=== PATIENT | male | born 1960 | race Caucasian/White ===

== ENCOUNTER 2022-03-05 04:13 | Inpatient (IN) ==
[2022-03-05 04:55] LABS: Basophils % 0.2 % (0.0-0.8); Eosinophils % 0.8 % (0.00-10.9); Hematocrit 48.3 VOL% (42.0-52.0); Immature Granulocytes % 0.4 %; Immature Granulocytes Absolute 0.02 #; Lymphocytes # 0.2 10*3/uL (1.4-4.0); Lymphocytes % 3.7 % (21.2-54.2); Mean Corpuscular HGB Conc 35.2 GM/DL (32-36); Mean Corpuscular Volume 92.5 FL (87-102); Monocytes % 0.4 % (1.7-12.7); Neutrophils % 94.5 % (38.7-73.9); Platelet Count 127 T/CUMM (130-400); Red Blood Count 5.22 MC/CUMM (3.8-5.5); Red Cell Distribution Width 13.2 % (9.3-17.3); White Blood Count 5.2 T/CUMM (4-12)
[2022-03-05 05:13] LABS: Bilirubin,Total 1.8 MG/DL (0.20-1.00); Calcium 8.8 MG/DL (8.5-10.1); Osmolality,Calculated 290.4 MOS/KG (273-304); Potassium 3.3 MMOL/L (3.5-5.1); Total Protein 7.3 G/DL (6.4-8.2)
[2022-03-05 05:26] LABS: Band Neutrophils 4 % (0-10); Lymphocytes 3 % (20-55); Platelet Estimate Adequate; Segmented Neutrophils 90 % (50-85); Stomatocytes Few; Total Cells Counted 100
[2022-03-05] MEDS ORDERED: VANCOMYCIN INJ 1,000 MG in SODIUM CHLORIDE 0.9% 250 ML IV STA (05:41)
[2022-03-05] MEDS ORDERED: PIPERACILLIN/TAZOBACTAM 3,375 MG in SODIUM CHLORIDE 0.9% 100 ML IV STA (05:44)
[2022-03-05 05:58] LABS: Mucus,Urine Occasional /LPF (Occasional); RBC,Urine 3 /HPF (0-4)
[2022-03-05 05:59] LABS: Bilirubin,Urine Negative (Negative); Blood, Urine Small mg/dL (Negative); Glucose,Urine (UA) >1000 mg/dL (Negative); Ketones,Urine Negative (Negative); Nitrite,Urine Negative (Negative); Protein,Urine 100 mg/dL (Negative); Urine Appearance Clear (Clear); Urine Color Yellow (Yellow); Urine Specific Gravity 1.015 (1.001-1.035); Urine Urobilinogen 0.2 eU/dL (<2.0); Urine pH 5.5 (4.5-8.0)
[2022-03-05] MEDS ORDERED: LACTATED RINGERS 1,000 ML IV SCH (06:00)
[2022-03-05] MEDS ORDERED: FUROSEMIDE 40 MG/4 ML VIAL IV STA (06:14)
[2022-03-05] MEDS ORDERED: guaiFENesin/DM ER 600-30 MG TABLET PO PRN (06:17)
[2022-03-05] MEDS ORDERED: DEXTROSE 10% 25 GM/250 ML BAG IV PRN (06:17)
[2022-03-05] MEDS ORDERED: ACETAMINOPHEN 325 MG TABLET PO PRN (06:17)
[2022-03-05] MEDS ORDERED: GLUCAGON 1 MG VIAL IM PRN (06:17)
[2022-03-05] MEDS ORDERED: ONDANSETRON 4 MG/2 ML VIAL IV PRN (06:17)
[2022-03-05] MEDS ORDERED: hydrALAZINE 20 MG/1 ML VIAL IV PRN (06:17)
[2022-03-05] MEDS ORDERED: methylPREDNISolone SOD SUC 125 MG/2 ML VIAL IV STA (06:35)
[2022-03-05 06:47] LABS: Arterial Base Excess iSTAT 0 MMOL/L (-2.5-2.5); Arterial Bicarbonate iSTAT 23.5 MMOL/L (20-26); Arterial O2 Saturation iSTAT 91 % (95-100); Arterial PCO2 iSTAT 35 MM HG (35-48); Arterial PO2 iSTAT 59 MM HG (80-95); Arterial Total CO2 iSTAT 25 MMO/L (23-27); Arterial pH iSTAT 7.432 (7.35-7.45)
[2022-03-05] MEDS ORDERED: POTASSIUM CHLORIDE RIDER 10 MEQ/100 ML PREMIX IV PRN (06:49)
[2022-03-05] MEDS ORDERED: MAGNESIUM SULF RIDER 2 GM/50 ML PREMIX IV PRN (06:49)
[2022-03-05] MEDS ORDERED: MAGNESIUM SULF RIDER 4 GM/100 ML PREMIX IV PRN (06:49)
[2022-03-05] MEDS ORDERED: POTASSIUM CHLORIDE 20 MEQ TABLET PO PRN (06:49)
[2022-03-05] MEDS: ALBUTEROL/IPRATROPIUM 3 ML NEB RESP TX SCH ×3 (06:58→19:17)
[2022-03-05] MEDS ORDERED: ENOXAPARIN 40 MG/0.4 ML SYRINGE SUBCUT SCH (07:00)
[2022-03-05] MEDS ORDERED: VANCOMYCIN INJ 1,500 MG in SODIUM CHLORIDE 0.9% 250 ML IV SCH (07:00)
[2022-03-05] MEDS ORDERED: SODIUM CHLORIDE 0.9% 1,000 ML IV SCH (07:30)
[2022-03-05] MEDS: INSULIN REGULAR 100 UNIT/ML SUBCUT SCH ×4 (08:14→22:06)
[2022-03-05] MEDS: CEFEPIME 1,000 MG in SODIUM CHLORIDE 0.9% 100 ML IV SCH ×3 (09:03→22:03)
[2022-03-05] MEDS: DOCUSATE SODIUM 100 MG CAPSULE PO SCH ×2 (09:03→22:40)
[2022-03-05] MEDS: PANTOPRAZOLE 40 MG TABLET PO SCH (09:04)
[2022-03-05] MEDS ORDERED: ENOXAPARIN 60 MG/0.6 ML SYRINGE SUBCUT ONE (10:01)
[2022-03-05] MEDS ORDERED: ASPIRIN EC 325 MG TABLET PO ONE (10:02)
[2022-03-05] MEDS ORDERED: DEXTROSE 10% 250 ML BAG IV PRN (10:48)
[2022-03-05] MEDS: TICAGRELOR 90 MG TABLET PO SCH ×2 (12:21→22:07)
[2022-03-05] MEDS: METOPROLOL TARTRATE 25 MG TABLET PO SCH ×2 (12:21→22:07)
[2022-03-05] MEDS: methylPREDNISolone SOD SUC 125 MG/2 ML VIAL IV SCH (17:10)
[2022-03-05] MEDS: ENOXAPARIN 100 MG/ML SYRINGE SUBCUT SCH (22:03)
[2022-03-05] MEDS: guaiFENesin/DM ER 600-30 MG TABLET PO SCH ×2 (22:03→22:08)
[2022-03-05] MEDS ORDERED: POTASSIUM CHLORIDE 20 MEQ TABLET PO ONE (22:04)
[2022-03-05] MEDS: INSULIN GLARGINE 100 UNIT/ML SUBCUT SCH (22:06)
[2022-03-05] MEDS: ROSUVASTATIN 20 MG TABLET PO SCH (22:22)
[2022-03-06] MEDS: ALBUTEROL/IPRATROPIUM 3 ML NEB RESP TX SCH ×4 (00:11→19:45)
[2022-03-06] MEDS: methylPREDNISolone SOD SUC 125 MG/2 ML VIAL IV SCH ×2 (00:33→09:36)
[2022-03-06] MEDS: VANCOMYCIN INJ 1,500 MG in SODIUM CHLORIDE 0.9% 500 ML IV SCH ×2 (00:34→17:26)
[2022-03-06] MEDS: CEFEPIME 1,000 MG in SODIUM CHLORIDE 0.9% 100 ML IV SCH ×4 (03:39→22:03)
[2022-03-06 07:11] LABS: Basophils % 0.2 % (0.0-0.8); Hematocrit 44.3 VOL% (42.0-52.0); Immature Granulocytes % 0.6 %; Immature Granulocytes Absolute 0.06 #; Lymphocytes # 0.5 10*3/uL (1.4-4.0); Lymphocytes % 4.9 % (21.2-54.2); Mean Corpuscular HGB Conc 33.4 GM/DL (32-36); Mean Corpuscular Volume 96.3 FL (87-102); Mean Platelet Volume 11.7 FL (9.6-12.0); Neutrophils % 92.3 % (38.7-73.9); Platelet Count 122 T/CUMM (130-400); Red Cell Distribution Width 13.2 % (9.3-17.3)
[2022-03-06 07:12] LABS: Hemoglobin 14.8 GM/DL (14.0-18.0); White Blood Count 10.4 T/CUMM (4-12)
[2022-03-06 07:20] LABS: Albumin 3.1 G/DL (3.4-5.0); Bilirubin,Total 1.2 MG/DL (0.20-1.00); Calcium 8.9 MG/DL (8.5-10.1); Osmolality,Calculated 296.1 MOS/KG (273-304); Thyroid Stimulating Hormone 0.274 uIU/ml (0.358-3.74); Total Protein 6.6 G/DL (6.4-8.2)
[2022-03-06 07:23] LABS: Band Neutrophils 2 % (0-10); Lymphocytes 3 % (20-55); Segmented Neutrophils 94 % (50-85); Total Cells Counted 100
[2022-03-06] MEDS: guaiFENesin/DM ER 600-30 MG TABLET PO SCH ×2 (09:34→21:53)
[2022-03-06] MEDS: DOCUSATE SODIUM 100 MG CAPSULE PO SCH ×2 (09:34→22:12)
[2022-03-06] MEDS: PANTOPRAZOLE 40 MG TABLET PO SCH (09:34)
[2022-03-06] MEDS: METOPROLOL TARTRATE 25 MG TABLET PO SCH ×2 (09:34→21:57)
[2022-03-06] MEDS: FOLIC ACID 1 MG TABLET PO SCH (09:34)
[2022-03-06] MEDS: TICAGRELOR 90 MG TABLET PO SCH ×2 (09:34→21:58)
[2022-03-06] MEDS: ASPIRIN EC 81 MG TABLET PO SCH (09:34)
[2022-03-06] MEDS: INSULIN REGULAR 100 UNIT/ML SUBCUT SCH ×4 (09:37→21:53)
[2022-03-06] MEDS: ENOXAPARIN 100 MG/ML SYRINGE SUBCUT SCH ×2 (09:37→21:59)
[2022-03-06] MEDS: predniSONE 10 MG TABLET PO SCH (12:28)
[2022-03-06] MEDS ORDERED: guaiFENesin/CODEINE 5 ML LIQUID PO PRN (15:10)
[2022-03-06] MEDS: EMPAGLIFLOZIN 25 MG PO SCH (15:26)
[2022-03-06] MEDS: INSULIN GLARGINE 100 UNIT/ML SUBCUT SCH (21:52)
[2022-03-06] MEDS: ROSUVASTATIN 20 MG TABLET PO SCH (21:54)
[2022-03-07] MEDS: ALBUTEROL/IPRATROPIUM 3 ML NEB RESP TX SCH ×4 (00:05→19:30)
[2022-03-07] MEDS: CEFEPIME 1,000 MG in SODIUM CHLORIDE 0.9% 100 ML IV SCH ×2 (02:36→08:15)
[2022-03-07 05:05] LABS: Basophils % 0.2 % (0.0-0.8); Eosinophils % 0.3 % (0.00-10.9); Hematocrit 42.2 VOL% (42.0-52.0); Hemoglobin 14.3 GM/DL (14.0-18.0); Immature Granulocytes % 0.5 %; Immature Granulocytes Absolute 0.05 #; Lymphocytes # 1.1 10*3/uL (1.4-4.0); Lymphocytes % 10.3 % (21.2-54.2); Mean Corpuscular HGB Conc 33.9 GM/DL (32-36); Mean Corpuscular Volume 97.7 FL (87-102); Mean Platelet Volume 11.3 FL (9.6-12.0); Monocytes % 8.1 % (1.7-12.7); Neutrophils % 80.6 % (38.7-73.9); Platelet Count 120 T/CUMM (130-400); Red Blood Count 4.32 MC/CUMM (3.8-5.5); Red Cell Distribution Width 13.2 % (9.3-17.3); White Blood Count 10.4 T/CUMM (4-12)
[2022-03-07 05:36] LABS: Calcium 8.7 MG/DL (8.5-10.1); Potassium 4.1 MMOL/L (3.5-5.1)
[2022-03-07] MEDS ORDERED: SODIUM CHLORIDE 0.9% 1,000 ML IV SCH (07:00)
[2022-03-07] MEDS: INSULIN REGULAR 100 UNIT/ML SUBCUT SCH ×4 (07:52→22:38)
[2022-03-07] MEDS ORDERED: DIAZEPAM 5 MG TABLET PO ONE (08:00)
[2022-03-07] MEDS ORDERED: diphenhydrAMINE CAP 50 MG CAPSULE PO ONE (08:00)
[2022-03-07] MEDS: FOLIC ACID 1 MG TABLET PO SCH (08:17)
[2022-03-07] MEDS: guaiFENesin/DM ER 600-30 MG TABLET PO SCH ×2 (08:17→22:39)
[2022-03-07] MEDS: predniSONE 10 MG TABLET PO SCH (08:17)
[2022-03-07] MEDS: METOPROLOL TARTRATE 25 MG TABLET PO SCH ×2 (08:17→22:42)
[2022-03-07] MEDS: ASPIRIN EC 81 MG TABLET PO SCH (08:17)
[2022-03-07] MEDS: DOCUSATE SODIUM 100 MG CAPSULE PO SCH ×2 (08:18→22:42)
[2022-03-07] MEDS: EMPAGLIFLOZIN 25 MG PO SCH (08:18)
[2022-03-07] MEDS: PANTOPRAZOLE 40 MG TABLET PO SCH (08:18)
[2022-03-07] MEDS: TICAGRELOR 90 MG TABLET PO SCH ×2 (08:18→22:39)
[2022-03-07] MEDS: ENOXAPARIN 100 MG/ML SYRINGE SUBCUT SCH ×2 (08:25→22:40)
[2022-03-07] MEDS ORDERED: LIDOCAINE 1%/EPI INJ 20 ML VIAL ONE (09:08)
[2022-03-07] MEDS ORDERED: HEPARIN/NACL 0.9% 2 UNITS/ML 2,000 UNIT/1,000 ML BAG IV ONE (09:08)
[2022-03-07] MEDS ORDERED: MIDAZOLAM 2 MG/2 ML VIAL ONE (09:40)
[2022-03-07] MEDS ORDERED: fentaNYL 100 MCG/2 ML VIAL ONE (09:40)
[2022-03-07] MEDS: AMOXICILLIN/CLAV 875 MG TABLET PO SCH ×2 (11:44→22:39)
[2022-03-07] MEDS: INSULIN GLARGINE 100 UNIT/ML SUBCUT SCH (22:38)
[2022-03-07] MEDS: ROSUVASTATIN 20 MG TABLET PO SCH (22:42)
[2022-03-08] MEDS: ALBUTEROL/IPRATROPIUM 3 ML NEB RESP TX SCH ×2 (00:20→07:12)
[2022-03-08 07:47] VITALS: BP 146/57
[2022-03-08] MEDS ORDERED: METHOTREXATE 2.5 MG TABLET PO SCH (09:00)
[2022-03-08] MEDS ORDERED: RIVAROXABAN 2.5 MG TABLET PO SCH (10:00)
[2022-03-08] MEDS: INSULIN REGULAR 100 UNIT/ML SUBCUT SCH (10:09)
[2022-03-08] MEDS: guaiFENesin/DM ER 600-30 MG TABLET PO SCH (10:09)
[2022-03-08] MEDS: ASPIRIN EC 81 MG TABLET PO SCH (10:10)
[2022-03-08] MEDS: AMOXICILLIN/CLAV 875 MG TABLET PO SCH (10:10)
[2022-03-08] MEDS: TICAGRELOR 90 MG TABLET PO SCH (10:10)
[2022-03-08] MEDS: DOCUSATE SODIUM 100 MG CAPSULE PO SCH (10:11)
[2022-03-08] MEDS: METOPROLOL TARTRATE 25 MG TABLET PO SCH (10:11)
[2022-03-08] MEDS: predniSONE 10 MG TABLET PO SCH (10:12)
[2022-03-08] MEDS: PANTOPRAZOLE 40 MG TABLET PO SCH (10:12)
[2022-03-08] MEDS: FOLIC ACID 1 MG TABLET PO SCH (10:18)
[2022-03-08] MEDS: EMPAGLIFLOZIN 25 MG PO SCH (10:19)
[2022-03-08] MEDS ORDERED: SIMVASTATIN 20 MG TABLET PO SCH (21:00)
[2022-03-09] MEDS ORDERED: FUROSEMIDE 40 MG TABLET PO SCH (09:00)
[2022-03-09] MEDS ORDERED: EZETIMIBE 10 MG TABLET PO SCH (09:00)
== END 2022-03-08 13:41 | disposition home or self-care (01) | DRG 193 ==
LOC: SUATTDRO → N.ED 04:13 → SUATTDRO 06:17 → N.EDINP 06:17 → N.5E 08:21
PROVIDERS: ADMIT Emergency Medicine; ATTEND Internal Medicine

== ENCOUNTER 2022-03-09 15:11 | Observation (INO) ==
[2022-03-09] MEDS ORDERED: ONDANSETRON 4 MG/2 ML VIAL IV STA (19:07)
[2022-03-09] MEDS ORDERED: ALBUTEROL/IPRATROPIUM 3 ML NEB RESP TX STA (19:07)
[2022-03-09] MEDS ORDERED: methylPREDNISolone SOD SUC 125 MG/2 ML VIAL IV STA (19:07)
[2022-03-09] MEDS ORDERED: ASPIRIN 325 MG TABLET PO STA (19:07)
[2022-03-09] MEDS ORDERED: MORPHINE 2 MG/1 ML SYRINGE IV STA (19:07)
[2022-03-09] MEDS ORDERED: FUROSEMIDE 100 MG/10 ML VIAL IV STA (19:07)
[2022-03-09 19:20] LABS: Basophils % 0.3 % (0.0-0.8); Eosinophils # 0.1 10*3/uL (0.0-0.87); Eosinophils % 1.7 % (0.00-10.9); Hematocrit 48.5 VOL% (42.0-52.0); Immature Granulocytes % 0.9 %; Immature Granulocytes Absolute 0.05 #; Lymphocytes # 1.1 10*3/uL (1.4-4.0); Lymphocytes % 18.2 % (21.2-54.2); Mean Corpuscular HGB Conc 35.1 GM/DL (32-36); Mean Corpuscular Volume 93.6 FL (87-102); Mean Platelet Volume 11.1 FL (9.6-12.0); Monocytes # 0.4 10*3/uL (0.11-0.8); Monocytes % 7.6 % (1.7-12.7); Neutrophils % 71.3 % (38.7-73.9); Platelet Count 161 T/CUMM (130-400); Red Blood Count 5.18 MC/CUMM (3.8-5.5); Red Cell Distribution Width 13.2 % (9.3-17.3); White Blood Count 5.8 T/CUMM (4-12)
[2022-03-09 19:33] LABS: INR 1.1
[2022-03-09 19:42] LABS: Albumin 4.2 G/DL (3.4-5.0); Bilirubin,Total 2.4 MG/DL (0.20-1.00); Calcium 9.6 MG/DL (8.5-10.1); Osmolality,Calculated 284.8 MOS/KG (273-304); Potassium 4.3 MMOL/L (3.5-5.1); Total Protein 7.2 G/DL (6.4-8.2)
[2022-03-09] MEDS ORDERED: GLUCAGON 1 MG VIAL IM PRN (21:07)
[2022-03-09] MEDS ORDERED: MORPHINE 2 MG/1 ML SYRINGE IV PRN (21:07)
[2022-03-09] MEDS ORDERED: ONDANSETRON 4 MG/2 ML VIAL IV PRN (21:07)
[2022-03-09] MEDS ORDERED: POTASSIUM CHLORIDE 20 MEQ TABLET PO PRN (21:07)
[2022-03-09] MEDS ORDERED: DEXTROSE 10% 250 ML BAG IV PRN (21:07)
[2022-03-09] MEDS ORDERED: ACETAMINOPHEN 325 MG TABLET PO PRN (21:07)
[2022-03-09] MEDS ORDERED: AMOXICILLIN/CLAV 875 MG TABLET PO SCH (22:00)
[2022-03-09] MEDS: TICAGRELOR 90 MG TABLET PO SCH (22:27)
[2022-03-09] MEDS ORDERED: cefTRIAXone 1,000 MG in SODIUM CHLORIDE 0.9% 100 ML IV SCH (23:00)
[2022-03-09] MEDS: RIVAROXABAN 2.5 MG TABLET PO SCH (23:32)
[2022-03-10 04:57] LABS: Basophils % 0.2 % (0.0-0.8); Eosinophils % 0.2 % (0.00-10.9); Immature Granulocytes % 0.6 %; Immature Granulocytes Absolute 0.03 #; Lymphocytes # 0.6 10*3/uL (1.4-4.0); Lymphocytes % 13.3 % (21.2-54.2); Mean Corpuscular HGB Conc 34.7 GM/DL (32-36); Mean Corpuscular Volume 93.2 FL (87-102); Monocytes # 0.1 10*3/uL (0.11-0.8); Monocytes % 1.7 % (1.7-12.7); Platelet Count 152 T/CUMM (130-400); Red Blood Count 5.26 MC/CUMM (3.8-5.5); Red Cell Distribution Width 12.9 % (9.3-17.3); White Blood Count 4.7 T/CUMM (4-12)
[2022-03-10 05:11] LABS: Albumin 3.8 G/DL (3.4-5.0); Bilirubin,Total 1.8 MG/DL (0.20-1.00); Calcium 9.3 MG/DL (8.5-10.1); Osmolality,Calculated 294.4 MOS/KG (273-304); Potassium 4.1 MMOL/L (3.5-5.1); Total Protein 7.4 G/DL (6.4-8.2)
[2022-03-10] MEDS: ALBUTEROL 2.5 MG/3 ML NEB RESP TX SCH ×2 (07:05→14:32)
[2022-03-10] MEDS ORDERED: FUROSEMIDE 40 MG/4 ML VIAL IV SCH (08:00)
[2022-03-10] MEDS ORDERED: PANTOPRAZOLE 40 MG TABLET PO SCH (09:00)
[2022-03-10] MEDS ORDERED: EZETIMIBE 10 MG TABLET PO SCH (09:00)
[2022-03-10] MEDS ORDERED: METOPROLOL TARTRATE 25 MG TABLET PO SCH (09:00)
[2022-03-10] MEDS ORDERED: FOLIC ACID 1 MG TABLET PO SCH (09:00)
[2022-03-10] MEDS ORDERED: predniSONE 10 MG TABLET PO SCH (09:00)
[2022-03-10] MEDS: INSULIN LISPRO 100 UNIT/ML SUBCUT SCH ×2 (09:15→12:43)
[2022-03-10] MEDS: TICAGRELOR 90 MG TABLET PO SCH (09:16)
[2022-03-10] MEDS: RIVAROXABAN 2.5 MG TABLET PO SCH (09:16)
[2022-03-10 13:11] VITALS: BP 130/76
[2022-03-10] MEDS ORDERED: SIMVASTATIN 10 MG TABLET PO SCH (21:00)
[2022-03-15] MEDS ORDERED: METHOTREXATE 2.5 MG TABLET PO SCH (21:00)
== END 2022-03-10 15:41 | disposition home or self-care (01) ==
LOC: N.ED 15:11 → N.EDINP 15:11 → N.TELEN 23:05
PROVIDERS: ADMIT Internal Medicine; ATTEND Internal Medicine